=== PATIENT | female | born 1965 | race African-American/Black ===

== ENCOUNTER 2020-07-11 08:31 | Emergency (ER) | payer BC ==
[~2020-07-11] VITALS: Ht 170.2 cm; Wt 77.1 kg
--- NOTE | 2020-07-11 08:48 | NUR ---
Pt c/o fever, with non-specific body aches since Wednesday. Pt denies CP, SOB, dizziness, n/v, no other complaints, minor distress noted.
[2020-07-11] MEDS ORDERED: AZITHROMYCIN 250 MG TABLET PO ONE (10:15)
[2020-07-11] MEDS ORDERED: DEXAMETHASONE 4 MG TABLET PO ONE (10:15)
[2020-07-11] MEDS ORDERED: AZITHROMYCIN 250 MG TABLET ONE (10:24)
[2020-07-11] MEDS ORDERED: DEXAMETHASONE 4 MG TABLET ONE (10:24)
--- NOTE | 2020-07-11 10:36 | NUR ---
Gave pt RX and d/c instructions, pt verbalized understanding.
[2020-07-11 10:47] VITALS: BP 131/78
== END 2020-07-11 10:49 | disposition home or self-care (01) ==
LOC: ER 08:31
DX: U07.1 COVID-19 (principal); J12.82 Pneumonia due to coronavirus disease 2019; Z88.5 Allergy status to narcotic agent; Z88.0 Allergy status to penicillin
CPT/HCPCS: 71045; 87426; 99284; J8540; U0003; A4663; Q0144

== ENCOUNTER 2021-06-29 12:18 | Emergency (ER) | payer BC ==
[~2021-06-29] VITALS: Ht 170.2 cm; Wt 77.1 kg
--- NOTE | 2021-06-29 13:35 | NUR ---
Patient discharged to home in stable condition. Written and verbal after care instructions given. Patient verbalizes understanding of instructions. Stressed follow up or return to ER for worsening s/s.
[2021-06-29 13:37] VITALS: BP 126/73
== END 2021-06-29 13:49 | disposition home or self-care (01) ==
LOC: ER 12:19
DX: S52.134A Nondisplaced fracture of neck of right radius, initial encounter for closed fracture (principal); V00.121A Fall from non-in-line roller-skates, initial encounter; Y93.51 Activity, roller skating (inline) and skateboarding; Y92.89 Other specified places as the place of occurrence of the external cause; Z86.16 Personal history of COVID-19
CPT/HCPCS: 73090; A4663

== ENCOUNTER 2021-11-09 09:05 | Emergency (ER) | payer BC ==
[~2021-11-09] VITALS: Ht 170.2 cm; Wt 77.1 kg
--- NOTE | 2021-11-09 09:10 | NUR ---
Patient ambulatory, alert and orientedx4 with complaints of body aches,chills started 2 days ago. Patient stated with family covid exposure. Denies nausea/vomiting, abdominal pain, SOB. Vitals stable.
--- NOTE | 2021-11-09 09:21 | NUR ---
DR MCNAIR AT BEDSIDE FOR EVALUATION.
[2021-11-09] MEDS ORDERED: IBUP-1955 PO (09:38)
[2021-11-09 10:07] VITALS: BP 115/63
== END 2021-11-09 10:08 | disposition home or self-care (01) ==
LOC: ER 09:09
DX: U07.1 COVID-19 (principal)
CPT/HCPCS: 71045; 87400; A4663